=== PATIENT | female | born 1950 | race Hispanic/Latino ===

== ENCOUNTER 2018-08-16 19:04 | Emergency (ER) | payer MEDICARE, OTHER ==
[2018-08-16 19:35] VITALS: BP 171/90; PULSE 82; RESP 18; TEMP 98.5; O2SAT 100
--- NOTE | 2018-08-16 19:47 | ED PDOC ---
HPI: Eye Injury/Pain Time Seen by Provider: 08/16/18 19:38 Chief Complaint (Nursing): Eye Problem Chief Complaint (Provider): Eye problem History Per: Patient History/Exam Limitations: no limitations Onset/Duration Of Symptoms: Days (1x) Current Symptoms Are (Timing): Still Present Injury To Eye?: No Severity: Moderate Associated Symptoms: Swelling, Itching, Discharge From Eye (yellow/green), Other (redness). denies: Pain, Decreased Vision, FB Sensation Additional Complaint(s): 67 year old female with no pertinent past medical history presents to the ED for an evaluation of left eye itching, redness, swelling and tearing (yellow/green discharge) that started today. She reports her granddaughter had pink eye. Patient denies having any visual changes, foreign body sensation, wearing contacts, or glasses. PMD: [facility] Past Medical History Reviewed: Historical Data, Nursing Documentation, Vital Signs Vital Signs: Last Vital Signs Temp 98.5 F 08/16/18 19:33 Pulse 82 08/16/18 19:33 Resp 18 08/16/18 19:33 BP 171/90 H 08/16/18 19:33 Pulse Ox 100 08/16/18 19:33 PAVEL Report Viewed: Yes - Medical History PMH: No Chronic Diseases Denies: Diabetes, HTN - Family History Family History: States: Unknown Family Hx - Social History Current smoker - smoking cessation education provided: Yes Alcohol: Occasional Drugs: Denies - Home Medications Home Medications: Ambulatory Orders Medication Instructions Recorded Polymyxin/Trimethoprim Sulfate 1 - 2 drop OD 5XD 10 Days #1 bottle 08/16/18 [Polytrim Ophth Soln] - Allergies Allergies/Adverse Reactions: Allergies Allergy/AdvReac Type Severity Reaction Status Date / Time No Known Allergies Allergy Verified 08/16/18 19:33 Review of Systems ROS Statement: Except As Marked, All Systems Reviewed And Found Negative ENT: Positive for: Ear Discharge (yellow/green), Other (eye redness, itching, swelling. (-) visual changes, (-) foreign body sensation) Physical Exam - Reviewed Nursing Documentation Reviewed: Yes Vital Signs Reviewed: Yes - Physical Exam Comments: GENERAL APPEARANCE: Patient is awake, alert, oriented x 3, in no acute distress. HEENT: (-) facial swelling and erythema, (-) facial blisters. LIDS & LASHES: Normal. no soft tissue swelling, lids inverted, no foreign body PUPILS: Pupils equal. reactive. EOMI's: Intact. CONJUNCTIVAE: (+) injection to left eye with yellow/green drainage CORNEA: (-) foreign body ANTERIOR CHAMBER: (-) foreign body, (-) tear in iris, (-) hyphema. - ECG O2 Sat by Pulse Oximetry: 100 (RA) Pulse Ox Interpretation: Normal Medical Decision Making Medical Decision Makin:38 Clinical impression: 67 year old female with conjunctivitis will treat with antibiotic drops pt with elevated BP, asymptomatic and no history, pt has appointment with PMD in 1 day, instructed proper follow up discussed results, diagnosis, treatment, return precautions and f/u with pt who is understanding, in agreement and stable for dc Scribe Attestation: Documented by Mary Qiu, acting as a scribe for Nacho Aceves PA-C. Provider Scribe Attestation: All medical record entries made by the Scribe were at my direction and personally dictated by me. I have reviewed the chart and agree that the record accurately reflects my personal performance of the history, physical exam, medical decision making, and the department course for this patient. I have also personally directed, reviewed, and agree with the discharge instructions and disposition. Disposition - Clinical Impression Clinical Impression: Conjunctivitis of left eye - Patient ED Disposition Is Patient to be Admitted: No Counseled Patient/Family Regarding: Studies Performed, Diagnosis, Need For Followup, Rx Given - Disposition [facility]] Shadi Laird MD [Staff Provider] - Disposition: Routine/Home Disposition Time: 19:50 Condition: STABLE Additional Instructions: Thank you for letting us take care of you today. Use antibiotic drops as prescribed. Good handwashing, it is contagious.The emergency medical care you received today was directed at your acute symptoms. If you were prescribed any medication, please fill it and take as directed. It may take several days for your symptoms to resolve. Return to the Emergency Department if your symptoms worsen, do not improve, or if you have any other problems. Please contact your doctor in 2 days for re-evaluation and follow up / or call one of the physicians/clinics you have been referred to that are listed on the Patient Visit Information form that is included in your discharge packet. Bring any paperwork you were given at discharge with you along with any medications you are taking to your follow up visit. Our treatment cannot replace ongoing medical care by a primary care provider (PCP) outside of the emergency department. Prescriptions: Polymyxin/Trimethoprim Sulfate [Polytrim Ophth Soln] 1 - 2 drop OD 5XD 10 Days #1 bottle Instructions: Conjunctivitis ([place]) Forms: [facility] (Korean) Print Language: SALVADOREAN - POA Present On Arrival: None
== END 2018-08-16 20:38 | disposition home or self-care (01) ==
LOC: H.ER 19:04
DX: H10.9 Unspecified conjunctivitis (principal)